=== PATIENT | male | born 1970 | race Caucasian/White ===

== ENCOUNTER → 2018-02-12 08:07 | Outpatient (CLI) | payer SELFPAY ==
[2018-02-12 10:32] LABS: Anion Gap 6 (5-15); BUN 17 mg/dL (7-18); BUN/Creat Ratio 15.6 RATIO (10-20); Calcium,Total 8.9 mg/dL (8.5-10.1); Chloride 107 mmol/L (98-107); Cholesterol 247 mg/dL (200); Creatinine, Serum 1.09 mg/dL (0.70-1.30); EST Glomerular Filtration Rate 77 mL/min (>60); Est Glom Filt Rate - Afr Amer 93 mL/min (>60); Glucose 112 mg/dL (74-106); High Density Lipoprotein 37 mg/dL; Sodium Level 143 mmol/L (136-145); Triglycerides 191 mg/dL; Very Low Density Lipoprotein 38 mg/dL (5-40)
== END ==
PROVIDERS: Family Provider Family Medicine; PCP Family Medicine; Visit Provider Family Medicine
DX: Z00.00 Encounter for general adult medical examination without abnormal findings (principal)
CPT/HCPCS: 36415; 80048; 80061

== ENCOUNTER → 2018-02-15 10:07 | Outpatient (CLI) | payer SELFPAY ==
[2018-02-15 12:43] LABS: PSA,Total - Annual Screen 0.52 ng/mL (0.00-4.00)
== END ==
PROVIDERS: Family Provider Family Medicine; PCP Family Medicine; Visit Provider Family Medicine
DX: Z12.5 Encounter for screening for malignant neoplasm of prostate (principal)
CPT/HCPCS: 36415; 84153; G0103

== ENCOUNTER → 2019-06-12 12:15 | Outpatient (CLI) | payer SELFPAY ==
[2019-06-12 14:30] LABS: Anion Gap 5 (5-15); BUN 15 mg/dL (7-18); BUN/Creat Ratio 12.9 RATIO (10-20); Calcium,Total 9.2 mg/dL (8.5-10.1); Chloride 103 mmol/L (98-107); Creatinine, Serum 1.16 mg/dL (0.70-1.30); EST Glomerular Filtration Rate 71 mL/min (>60); Est Glom Filt Rate - Afr Amer 86 mL/min (>60); Glucose 145 mg/dL (74-106); Potassium 3.7 mmol/L (3.5-5.1); Sodium Level 137 mmol/L (136-145)
== END ==
PROVIDERS: PCP Family Medicine; Referring Provider Family Medicine; Visit Provider Family Medicine
DX: R91.8 Other nonspecific abnormal finding of lung field (principal)
CPT/HCPCS: 36415; 80048

== ENCOUNTER → 2019-06-18 07:44 | Outpatient (CLI) | payer SELFPAY ==
--- NOTE | 2019-06-18 07:52 | CT_ITS ---
STUDY: CT CHEST WITH CONTRAST REASON FOR EXAM: Male, 49 years old. ABNORMAL FINDING ON CXR FROM OUTSIDE FACILITY -- ON SPINE PER PT RADIATION DOSAGE (If Supplied By Facility): CTDIvol = ( 12.59 ) mGy, DLP = ( 647.78 ) mGycm TECHNIQUE: Transaxial imaging was performed following intravenous administration of IV 100mL Isovue-300. Multiplanar coronal and sagittal images were reformatted. Individualized dose optimization techniques were used for this CT. COMPARISON: None. FINDINGS: Small benign-appearing bilateral axillary lymph nodes. The lungs are normal. There is no demonstrated pleural abnormality. Normal heart and pericardium. There are multiple small lymph nodes within the mediastinum, which are normal in size and morphology most compatible with reactive lymph hyperplasia. Normal hilar regions. Normal enhanced pulmonary arteries. Normal aorta arch and descending thoracic aorta. There are multi-level degenerative changes of the thoracic spine. There is a very large osteophyte along the anterior right side of the T5 lumbar vertebrae adjacent to the costovertebral angle. Small hiatal hernia. CT/Chest WITH Contrast IMPRESSION: Prominent osteophyte along the right aspect of the T5 vertebrae at the costal vertebral junction. Electronically Signed: Wenceslao Veloz, at 16:47 EST , Service support ,
== END ==
PROVIDERS: PCP Family Medicine; Referring Provider Family Medicine; Visit Provider Family Medicine
DX: R91.8 Other nonspecific abnormal finding of lung field (principal)
CPT/HCPCS: 71260; Q9967

== ENCOUNTER → 2020-02-10 07:52 | Outpatient (CLI) | payer SELFPAY ==
[2020-02-04 08:15] VITALS: BMI 27.4
--- NOTE | 2020-02-10 07:53 | US_ITS ---
STUDY: ABDOMINAL ULTRASOUND - RIGHT UPPER QUADRANT REASON FOR VISIT: Male, 49 years old RUQ ABD PAIN TECHNIQUE: Ultrasound evaluation of the right upper quadrant was performed with real-time and static luis-scale imaging. TECHNICAL QUALITY: Adequate. Examination limited by bowel gas. COMPARISON: None. FINDINGS: Liver: The liver measures 13.9 cm. There is normal echogenicity of the liver. The bile ducts are within normal limits. There is hepatic color flow. The direction of portal flow is hepatopetal. There is no demonstrated mass lesion. Gallbladder: Normal distended gallbladder. The gallbladder wall measures 2.1 mm. There is a negative sonographic Shaw''s sign. There is no pericholecystic fluid. There are no gallstones. Common Bile Duct (C.B.D.): The common bile duct measures 2.8 mm. Pancreas: There is nonvisualization of the pancreas due to overlying bowel gas. Right Kidney: Normal size of the right kidney. The right kidney measures 10.7 cm x 6 cm x 6.6 cm. Normal renal cortex. The right cortex measures 2.7 cm. There is no demonstrated renal mass or cyst. There is no right hydronephrosis. US/Gallbladder IMPRESSION: Normal right upper quadrant ultrasound examination. Electronically Signed: Wenceslao Veloz, at 13:48 EDT , Service support ,
== END ==
PROVIDERS: PCP Family Medicine; Referring Provider Surgery; Visit Provider Surgery
DX: R10.11 Right upper quadrant pain (principal)
CPT/HCPCS: 76705

== ENCOUNTER 2020-02-20 08:50 | Day surgery (SDC) | payer SELFPAY ==
[2020-02-04 08:15] VITALS: BMI 27.4
--- NOTE | 2020-02-04 08:55 | HP_ITS ---
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: No Is patient in pain?: No Allergies No Known Allergies Allergy (Verified 02/04/20 08:17) Medications cetirizine 5 mg-pseudoephedrine ER 120 mg tablet,extended release,12hr 1 tab PO BID PRN 02/04/20 [History Confirmed 02/04/20] polyethylene glycol 3350 17 gram/dose oral powder 17 g PO DAILY 02/04/20 [History Confirmed 02/04/20] sildenafil 100 mg tablet 100 mg PO DAILY PRN 02/04/20 [History Confirmed 02/04/20] PFSH Medical History Family hx of colon cancer (Acute) Sleep apnea (Acute) RUQ abdominal pain (Acute) Constipation (Acute) Depression (Acute) Arthritis (Acute) Abdominal pain (Acute) Hyperlipidemia (Acute) 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 Bakari Soriano MD) Smoking Status: Former smoker quit date: 05/14/16 second hand exposure: No alcohol intake: former year quit: 2010 substance use type: does not use caffeine: Yes what type of physical activity do you participate in: none frequency: does not exercise HPI HPI HPI: CAROLINA SESAY, is a 49 M who presents to the office today for HPI HPI Surgical H&P: Yes HPI: CAROLINA SHAMA, is a 49 M who presents to the office today for colonoscopy and right upper quadrant pain. Patient reports that his father had colon cancer in his early 60s. He has never had a screening colonoscopy. He has no blood in his stool. He occasionally has right upper quadrant pain especially with poor eating habits. He does not have a nausea or vomiting. He says the pain radiates to his back. He was recently admitted to [facility] with ileus. ROS General General: No weight change, appetite, fatigue, colon cancer, breast cancer or weakness HEENT HEENT: No difficulty swallowing, eye injury, eye surgery, swollen glands or hoarseness Endo Endocrine: No thyroid disease, diabetes mellitus, thyroid cancer, Hair loss, heat intolerance or cold intolerance Skin Skin: No rash or changing moles Breast Breast: No left breast lump, right breast lump, nipple discharge, breast pain, abnormal mammogram, abnormal US or breast enlargement Musc Musculoskeletal: Yes arthritis and joint pain; no back problems, rheumatoid arthritis or gout Cardio Cardiovascular: No murmur, pacemaker, heart disease, atrial fibrillation, high blood pressure, heart attack, heart stent, palpitations, shortness of breat with exertion or chest pain Psych Psychiatric: Yes depression and anxiety; no hearing voices Resp Respiratory: No shortness of breath, Yes sleep apnea, No cough, No COPD, No asthma, No emphysema, No wheezing Gastro Gastrointestinal: Yes abdominal pain, No nausea or vomiting, No diarrhea, Yes constipation, No blood in stool, No acid reflux, No hemorrhoids, No ulcers, Yes gallbladder problem, No black,tarry stools Lam Hematologic: No blood thinners, No blood disorders, No bleeding, No anemia, No blood clots Neuro Neurologic: No weakness Exam Const General: cooperative Orientation: alert, oriented x3 Chest Breast Palpation: No nipple discharge Resp Effort & Inspection: normal respiratory effort Auscultation: clear to auscultation bilaterally Cardio Rate: regular rate Rhythm: regular rhythm Heart Sounds: no murmurs GI Inspection: non-distended Palpation: soft, nontender Assessment & Plan Problems 1. Screen for colon cancer Z12.11 2. RUQ abdominal pain R10.11 Plan The patient is having right upper quadrant pain and was recently admitted for an ileus. I will order an ultrasound of the gallbladder to ensure that there are no gallstones. Patient also need screening colonoscopy. The patient's father had colon cancer in his early 60s and he has never had a colonoscopy. He is denies any blood in his stool. I explained endoscopy in detail to the patient. I explained the risks including but not limited to stroke or heart attack with anesthesia, perforation of the GI tract, bleeding, infection. I explained that any of these could necessitate further emergency surgery. The patient understands and all questions were answered sufficiently. The patient wishes to proceed with procedure. We discussed the current risks associated with COVID-19. While it is understood that there is a community spread of COVID-19, the risk of joseline COVID-19 while at [facility] ([facility]) is very low; however, the risk cannot be completely mitigated because of the community spread of the disease. We discussed in detail the risk of exposure to and/or potential harm posed by the COVID-19 virus with having a surgery/procedure at this time versus the risk of delaying the surgery/procedure. It is not possible to know either the risk of delaying the surgery or procedure or chance of getting an infection with perfect accuracy, but a joint decision was made to proceed at this time with the scheduled surgery/procedure as indicated on the consent form. Patient was notified that we will need to comply with any screening or testing [facility] wishes to perform or that surgery may be delayed for any positive results. Bakari Soriano MD Pager: [facility] [address] [place] [address], [address] [place] [address] Office: Orders Orders: Colonoscopy Today Z12.11 Gallbladder Today R10.11 Coding Level of Care Code Off vis,new,level 3 Diagnoses Screen for colon cancer Z12.11 RUQ abdominal pain R10.11 02/04/20 0855 <Electronically signed by Bakari mims MD> Date _ Bakari Soriano MD I have re-examined the patient. There are no clinical changes since date of exam.
[2020-02-20] VITALS (7 sets, daily range): BP systolic 109–126; BP diastolic 76–95; PULSE 65–76; RESP 16–18; TEMP 36.2–37.2; O2SAT 96–100; BMI 27.3
[2020-02-20] MEDS: Lactated Ringers 1,000 ML 100 ML IV (09:33)
--- NOTE | 2020-02-20 10:00 | IMM_PTH ---
PATIENT: CAROLINA SESAY LOC: [place] U#:[id number] AGE/SX: 49/M ROOM: RE02/20/[address]: Dr. Bakari Soriano MD : 1970 BED: DIS: 02/20/2020 SPEC #: [id number] RECD: 02/20/20 13:51 STATUS: HERNAN JENNIFER #: [id number] DEN: 02/20/20 10:[address]: Bakari Soriano DEPT: IMMUNOHISTOCHEMISTRY RECD BY: Rosaline Hedrick ENTERED: 02/20/20 13:51 SP TYPE: IMMUNO OTHR DR: Dr. Raudel Britton MD Tissues: Stomach, NOS Procedures: H Pylori (initial) PHYSICIAN & INSTITUTION [place] [address] SPECIMEN INFORMATION: Tissue Source: Antrum biopsy Clinical Info: Screening, RUQ pain Specimen Number: [id number] CPT code: 79494 METHODOLOGY: Deparaffinized sections of prefer/formalin-fixed tissue or PAP/DQ stained slides are incubated with monoclonal/polyclonal antibodies/oligonucleotide probes. Localization is made via biotin free immunoperoxidase method. Appropriate controls are performed and reacted as expected. Results on target cell population are indicated in the following table: RESULTS: ANTIBODY / CLONE RESULT H Pylori (polyclonal) negative These tests were developed and their performance characteristics determined by [facility]. They may not have been cleared or approved by the U.S. Food and Drug Administration. The FDA has determined that such clearance or approval is not necessary. INTERPRETATION: Gastric antrum, biopsy: Negative for Helicobacter pylori organisms. RUBY:leonard 02/23/20
--- NOTE | 2020-02-20 10:00 | COLBX_PTH ---
PATIENT: CAROLINA SESAY LOC: [place] U#:[id number] AGE/SX: 49/M ROOM: RE02/20/[address]: Dr. Bakari Soriano MD : 1970 BED: DIS: 02/20/2020 SPEC #: [id number] RECD: 02/20/20 11:52 STATUS: HERNAN RODRIGUEZ #: [id number] DEN: 02/20/20 10:[address]: Bakari Soriano DEPT: SURGICAL PATHOLOGY RECD BY: Tracy Chamberlain ENTERED: 02/20/20 13:26 SP TYPE: COLON BX OTHR DR: Dr. Raudel Britton MD Tissues: Gastric mucous membrane Procedures: Surgery Specimen Level IV HEADER OPERATION: Colonoscopy, EGD ([facility]) PRE-OP DIAGNOSIS: Screening, RUQ pain TISSUE SUBMITTED: Antrum biopsy for histo and H. pylori MICROSCOPIC DIAGNOSIS Antrum biopsy: Mild gastritis. See microscopic description and comment. SJ:leonard 02/23/20 COMMENT The results of immunohistochemistry for Helicobacter pylori will be reported separately ([id number]). MICROSCOPIC DESCRIPTION Slides are reviewed. The specimen shows fragments of gastric mucosa with chronic inflammatory cell infiltrates in the lamina propria consisting of lymphocytes and plasma cells, consistent with mild chronic gastritis. GROSS DESCRIPTION Received in fixative is one container labeled with the patient's name and designated antrum biopsy. The specimen consists of two irregular fragments of light butler soft tissue that in aggregate measure 0.4 x 0.3 x 0.1 cm. The specimen is totally submitted in one cassette. / RUBY:leonard 02/20/20 TC:3 CPT: 81083
--- NOTE | 2020-02-20 11:02 | OP.EGD_ITS ---
Patient Name: Chance Pace Procedure Date: 02/20/2020 10:31 AM Date of : 1970 Age: 49 Procedure: Upper GI endoscopy Indications: Abdominal pain in the right upper quadrant Providers: Bakari Soriano MD Referring MD: Raudel Britton MD Medicines: Monitored Anesthesia Care Patient Profile: This is a 49 year old male. Refer to note in patient chart for documentation of history and physical. Complications: No immediate complications. Estimated blood loss: Minimal. Procedure: Pre-Anesthesia Assessment: - Prior to the procedure, a History and Physical was performed, and patient medications and allergies were reviewed. The patient's tolerance of previous anesthesia was also reviewed. The risks and benefits of the procedure and the sedation options and risks were discussed with the patient. All questions were answered, and informed consent was obtained. Prior Anticoagulants: The patient has taken no previous anticoagulant or antiplatelet agents. After reviewing the risks and benefits, the patient was deemed in satisfactory condition to undergo the procedure. After obtaining informed consent, the endoscope was passed under direct vision. Throughout the procedure, the patient's blood pressure, pulse, and oxygen saturations were monitored continuously. The Endoscope was introduced through the mouth, and advanced to the third part of duodenum. The upper GI endoscopy was accomplished without difficulty. The patient tolerated the procedure well. Scope In: 10:40:24 AM Scope Out: 10:43:41 AM Total Procedure Duration Time 0 hours 3 minutes 17 seconds Findings: The esophagus was normal. The stomach was normal. The examined duodenum was normal. Biopsies were taken with a cold forceps in the gastric antrum for Helicobacter pylori testing. Impression: - Normal esophagus. - Normal stomach. - Normal examined duodenum. - Biopsies were taken with a cold forceps for Helicobacter pylori testing. Recommendation: - Await pathology results. - Discharge patient to home. - Resume previous diet. - Continue present medications. Procedure Code(s): --- Professional --- 23204, Esophagogastroduodenoscopy, flexible, transoral; with biopsy, single or multiple Diagnosis Code(s): --- Professional --- R10.11, Right upper quadrant pain CPT copyright 2017 [employer]. All rights reserved. The codes documented in this report are preliminary and upon sieve grader tender review may be revised to meet current compliance requirements. Bakari Soriano MD 02/20/2020 11:02:25 AM This report has been signed electronically. Number of Addenda: 0 Note Initiated On: 02/20/2020 10:31 AM
--- NOTE | 2020-02-20 11:02 | OP.CCLET_ITS ---
02/20/2020 Raudel Britton MD [address] [id number] Re : Upper GI endoscopy procedure for Chance Katelynn Dear Dr. Britton This procedure was performed on Thursday, February 20, 2020. My impressions and recommendations are as follows: Impressions : - Normal esophagus. - Normal stomach. - Normal examined duodenum. - Biopsies were taken with a cold forceps for Helicobacter pylori testing. Recommendations : - Await pathology results. - Discharge patient to home. - Resume previous diet. - Continue present medications. My findings are described in the full procedure note, which is enclosed. If I can be of further assistance, please feel free to contact me at Doctor phone number(s): , Work: . Sincerely, Bakari Soriano MD 02/20/2020 11:02:25 AM This report has been signed electronically.
--- NOTE | 2020-02-20 11:04 | OP.COLON_ITS ---
Patient Name: Chance Pace Procedure Date: 02/20/2020 10:45 AM Date of : 1970 Age: 49 Procedure: Colonoscopy Indications: Screening in patient at increased risk: Colorectal cancer in father 60 or older Providers: Bakari Soriano MD Referring MD: Raudel Britton MD Medicines: Monitored Anesthesia Care Patient Profile: This is a 49 year old male. Refer to note in patient chart for documentation of history and physical. Last Colonoscopy: none. The patient's first colonoscopy is today. Complications: No immediate complications. Procedure: Pre-Anesthesia Assessment: - Prior to the procedure, a History and Physical was performed, and patient medications and allergies were reviewed. The patient's tolerance of previous anesthesia was also reviewed. The risks and benefits of the procedure and the sedation options and risks were discussed with the patient. All questions were answered, and informed consent was obtained. Prior Anticoagulants: The patient has taken no previous anticoagulant or antiplatelet agents. After reviewing the risks and benefits, the patient was deemed in satisfactory condition to undergo the procedure. After I obtained informed consent, the scope was passed under direct vision. Throughout the procedure, the patient's blood pressure, pulse, and oxygen saturations were monitored continuously. The pediatric colonoscope was introduced through the anus and advanced to the cecum, identified by appendiceal orifice and ileocecal valve. The colonoscopy was performed without difficulty. The patient tolerated the procedure well. The quality of the bowel preparation was good. Scope In: 10:45:57 AM Scope Withdrawal Time 0 hours 6 minutes 4 seconds Scope Out: 10:56:19 AM Total Procedure Duration Time 0 hours 10 minutes 22 seconds Findings: The entire examined colon appeared normal on direct and retroflexion views. Impression: - The entire examined colon is normal on direct and retroflexion views. - No specimens collected. Recommendation: - Discharge patient to home. - Resume previous diet. - Continue present medications. - Repeat colonoscopy in 10 years for screening purposes. Procedure Code(s): --- Professional --- 87928, Colonoscopy, flexible; diagnostic, including collection of specimen(s) by brushing or washing, when performed (separate procedure) Diagnosis Code(s): --- Professional --- Z80.0, Family history of malignant neoplasm of digestive organs CPT copyright 2017 [employer]. All rights reserved. The codes documented in this report are preliminary and upon orthopedic coder review may be revised to meet current compliance requirements. Bakari Soriano MD 02/20/2020 11:03:59 AM This report has been signed electronically. Number of Addenda: 0 Note Initiated On: 02/20/2020 10:45 AM
--- NOTE | 2020-02-20 11:04 | OP.CCLET_ITS ---
02/20/2020 Raudel Britton MD [address] [phone] Re : Colonoscopy procedure for Chance Pace Dear Dr. Britton This procedure was performed on Thursday, February 20, 2020. My impressions and recommendations are as follows: Impressions : - The entire examined colon is normal on direct and retroflexion views. - No specimens collected. Recommendations : - Discharge patient to home. - Resume previous diet. - Continue present medications. - Repeat colonoscopy in 10 years for screening purposes. My findings are described in the full procedure note, which is enclosed. If I can be of further assistance, please feel free to contact me at Doctor phone number(s): , Work: . Sincerely, Bakari Soriano MD 02/20/2020 11:03:59 AM This report has been signed electronically.
== END 2020-02-20 12:00 | disposition home or self-care (01) ==
LOC: EN 08:51 → AC 08:53
PROVIDERS: Anesthesiology; PCP Family Medicine; Referring Provider Family Medicine; Visit Provider Surgery
PROC: 0DJD8ZZ Inspection of Lower Intestinal Tract, Via Natural or Artificial Opening Endoscopic (ICD-10-PCS; CPT 45378; principal; 2020-02-20 09:55)
DX: Z12.11 Encounter for screening for malignant neoplasm of colon (principal); Z80.0 Family history of malignant neoplasm of digestive organs; K59.00 Constipation, unspecified; K29.70 Gastritis, unspecified, without bleeding; Z11.59 Encounter for screening for other viral diseases; M19.90 Unspecified osteoarthritis, unspecified site; Z87.891 Personal history of nicotine dependence
CPT/HCPCS: 43239; 45378; 87635; 88305; 88342; C9803; J7120; J2405; U0003

== ENCOUNTER 2021-05-31 16:45 | Outpatient (CLI) | payer SELFPAY ==
--- NOTE | 2021-05-31 16:48 | RAD_ITS ---
STUDY: X-RAY - RIGHT ANKLE REASON FOR EXAM: Male, 51 years old. ANKLE PAIN TECHNIQUE: 3 view(s) of the ankle. COMPARISON: None. FINDINGS: Normal visualized distal tibia and fibula. Normal medial and lateral malleoli. Mild tibiotalar degenerative changes. Intact ankle mortise. Normal visualized talus and calcaneus. The visualized subtalar, talonavicular, calcaneocuboid and tarsal articulations are normal. The soft tissue structures are unremarkable. RAD/Ankle min 3 Views IMPRESSION: No acute findings. Mild degenerative changes. Electronically Signed: Tristian Singh DO at 2:59 EST Tel , Service support ,
== END 2021-05-31 23:59 | disposition short-term general hospital (02) ==
LOC: MTRAD 16:47
PROVIDERS: PCP Family Medicine; Referring Provider Podiatrist; Visit Provider Podiatrist
DX: M19.071 Primary osteoarthritis, right ankle and foot (principal)
CPT/HCPCS: 73610

== ENCOUNTER → 2022-06-21 | Outpatient (CLI) | payer SELFPAY ==
[2022-06-21 10:56] LABS: Anion Gap 6 (5-15); BUN 24 mg/dL (7-18); BUN/Creat Ratio 20.9 RATIO (10-20); Calcium,Total 8.8 mg/dL (8.5-10.1); Chloride 106 mmol/L (98-107); Cholesterol 193 mg/dL (200); Creatinine, Serum 1.15 mg/dL (0.70-1.30); EST Glomerular Filtration Rate 71 mL/min (>60); Est Glom Filt Rate - Afr Amer 86 mL/min (>60); Glucose 171 mg/dL (74-106); High Density Lipoprotein 38 mg/dL; Potassium 3.7 mmol/L (3.5-5.1); Sodium Level 139 mmol/L (136-145); Triglycerides 160 mg/dL; Very Low Density Lipoprotein 32 mg/dL (5-40)
== END | disposition home or self-care (01) ==
PROVIDERS: PCP Family Medicine; Referring Provider Family Medicine; Visit Provider Family Medicine
DX: Z00.00 Encounter for general adult medical examination without abnormal findings (principal)
CPT/HCPCS: 36415; 80048; 80061